=== PATIENT | female | born 1975 | race Caucasian/White ===

== ENCOUNTER 2021-07-19 11:44 | Inpatient (IN) | payer OTHER ==
[~2021-07-19] VITALS: Ht 170.2 cm; Wt 171.5 kg
[2021-07-19] MEDS ORDERED: IV NORMAL SALINE 1,000ML 1,000 ML IV SCH (12:30)
[2021-07-19] MEDS ORDERED: AZITHROMYCIN 500 MG in IV NORMAL SALINE 250ML 250 ML IV ONE (12:30)
[2021-07-19] MEDS ORDERED: DEXAMETHASONE SOD PHOS 10 MG/ML VIAL. IVP ONE (12:30)
[2021-07-19] MEDS ORDERED: IOHEXOL 350 MG/ML 100 ML VIAL. IV ONE (12:45)
[2021-07-19] MEDS ORDERED: IV NORMAL SALINE 50ML 50 ML ONE (13:12)
[2021-07-19] MEDS ORDERED: AZITHROMYCIN 500 MG VIAL. IV ONE (13:12)
[2021-07-19] MEDS ORDERED: cefTRIAXone SODIUM 1 GM VIAL ONE (13:12)
[2021-07-19] MEDS ORDERED: IV NORMAL SALINE 250ML 250 ML ONE (13:12)
[2021-07-19] MEDS ORDERED: ACETAMINOPHEN 325 MG TABLET PO PRN (13:15)
--- NOTE | 2021-07-19 13:21 | PHYS DOC ---
Past History Additional Past Medical Histor: pre diabetes Past Surgical History: , Tonsillectomy, Other Additional Past Surgical Histo: tubal ligation, partial hysterectomy, knee surgery, Smoking: Non-smoker Alcohol Use: None Drug Use: None General Adult EDM: Chief Complaint: SHORTNESS OF BREATH HPI: HPI: 45-year-old female with history of dizziness and shortness of breath upon waking this morning. Patient does report history of positive COVID-19 test on 07/07/2021. Patient reports her symptoms started on 07/05/2021. Patient reports she had started to improved and was outside of isolation time and therefore presented to work yesterday. Patient reports she had been feeling fine until this morning. Patient reports significant dyspnea with any exertion. Denies leg swelling or calf tenderness. Denies chest pain. Patient does report trouble "catching her breath ". Denies fever or chills. Review of Systems: Review of Systems: Constitutional: Denies fever or chills Eyes: Denies redness or eye pain HENT: Denies nasal congestion or sore throat Respiratory: Reports cough. shortness of breath, and dyspnea with exertion Cardiovascular: Denies chest pain or palpitations GI: Denies abdominal pain, nausea, or vomiting : Denies dysuria or hematuria Musculoskeletal: Denies back pain or joint pain Integument: Denies rash or skin lesions Neurologic: Denies headache, focal weakness or sensory changes; reports dizziness Complete systems were reviewed and found to be within normal limits, except as documented in this note. Current Medications: Current Meds: Current Medications Medications (Trade) Dose Ordered Sig/Faustino Start Time Stop Time Status Last Admin Dose Admin Azithromycin (Zithromax) 500 mg STK-MED ONCE 07/19/21 13:12 07/19/21 13:12 DC Azithromycin 500 mg/Sodium Chloride 250 ml @ 250 mls/hr 1X ONCE 07/19/21 12:30 07/19/21 13:29 Ceftriaxone Sodium 1 gm/ Sodium Chloride 50 ml @ 100 mls/hr 1X ONCE 07/19/21 12:30 07/19/21 12:59 DC Ceftriaxone Sodium (Rocephin) 1 gm STK-MED ONCE 07/19/21 13:12 07/19/21 13:12 DC Dexamethasone Sodium Phosphate (Decadron) 10 mg 1X ONCE 07/19/21 12:30 07/19/21 12:48 DC Iohexol (Omnipaque 350 Mg/ml) 100 ml 1X ONCE 07/19/21 12:45 07/19/21 12:48 DC Sodium Chloride 50 ml @ As Directed STK-MED ONCE 07/19/21 13:12 07/19/21 13:12 DC Allergies: Allergies: Allergies Coded Allergies Type Severity Reaction Last Updated Verified codeine Allergy Unknown 07/19/21 Yes Physical Exam: PE: Constitutional: Well developed, morbidly obese, no acute distress, non-toxic appearance HENT: Normocephalic, atraumatic Eyes: PERRL, EOMI, conjunctiva normal, no discharge, no nystagmus Neck: Normal range of motion, no tenderness, supple, no meningeal signs Lungs & Thorax: No respiratory distress, equal chest rise and fall Abdomen: Soft, no tenderness Skin: Warm, dry, no erythema, no rash Extremities: No tenderness, ROM intact, no edema Neurologic: Alert and oriented X 3, normal motor function, normal sensory function, no focal deficits noted Psychologic: Affect normal, judgment normal Current Patient Data: Vital Signs: Vital Signs Date Time Temp Pulse Resp B/P (MAP) Pulse Ox O2 Delivery O2 Flow Rate FiO2 07/19/21 12:27 98.3 123 24 151/75 (100) 86 Room Air EKG: EKG: @1229 Sinus tachycardia at 115bpm, NO ST elevation, QRS 100ms, QT/QTc 352/489ms Radiology/Procedures: Radiology/Procedures: PROCEDURE: CT ANGIOGRAPHY CHEST EXAM: CT angiography of the chest with intravenous contrast. HISTORY: Dyspnea. Covid 19. TECHNIQUE: Computed tomographic images of the chest were obtained following the administration of intravenous contrast according to angiography protocol. Multiplanar reformatting was performed and three dimensional maximum intensity projection images were obtained. *One or more of the following individualized dose reduction techniques were utilized for this examination: 1. Automated exposure control. 2. Adjustment of the mA and/or kV according to patient size. 3. Use of iterative reconstruction technique. COMPARISON: None. FINDINGS: There are extensive bilateral pulmonary emboli involving the main, lobar and segmental pulmonary arteries. No saddle embolus is seen. The heart is normal in size. There is trace pericardial fluid. The aorta is normal in caliber. There is no evidence of right heart strain or pulmonary artery hypertension. There is no pneumothorax or pleural effusion. There is multifocal scattered groundglass infiltrate in a personally right upper lobe distribution. There is right basilar partial consolidation or atelectasis. There is a prominent calcified granuloma within the right lower lobe. There are also calcified media stinal and right hilar granulomas. There are prominent mediastinal and hilar lymph nodes. These are likely reactive in etiology. There is hepatomegaly and hepatic steatosis, partially included on the [id number]. There are splenic granulomas. There is no acute or suspicious osseous lesion. IMPRESSION: 1. Extensive bilateral pulmonary emboli with involvement of the main pulmonary arteries and bilateral lobar and segmental pulmonary arteries. No saddle embolus or right heart strain is seen. 2. Bilateral multifocal groundglass infiltrate in a peripherally upper lobe distribution. Correlate for atypical pneumonia. 3. Right basilar atelectasis or partial consolidation. 4. Hepatic steatosis and hepatomegaly. 5. Healed granulomas disease. 6. Suspected reactive mediastinal and hilar lymph nodes. Findings discussed with Dr. Tesfaye in the ED at 1400 hours on 07/19/2021. FOR INTERNAL CODING PURPOSES RESULT CODE: (C) Electronically signed by: Althea Anguiano MD (07/19/2021 2:18 PM) [facility] Heart Score: C/O Chest Pain: N/A Course & Med Decision Making: Course & Med Decision Making Pertinent Labs and Imaging studies reviewed. (See chart for details) Patient with recent positive COVID-19 test on 07/07/2021 presents with increased dizziness and dyspnea with exertion. Patient had previously been feeling back to normal. Patient noted to be hypoxic. Supplemental O2 placed. Covid precautions in place. EKG with sinus tachycardia. Labs obtained and posted to chart. CTA chest with findings of bilateral PEs and findings of residual Covid pneumonia.. No signs of heart strain appreciated. Troponin elevated likely secondary to PEs. Repeat troponin improved. Lactic acid also elevated which improved during ED stay. Aspirin provided. Empiric Lovenox provided. Empiric antibiotic also initiated along with IV fluid hydration. Patient does meet SIRS criteria with tachycardia and tachypnea. Source of infection in lungs with Covid pneumonia. Lactic acid elevated. Patient does meet severe sepsis criteria. IV fluid bolusing based on ideal body weight. Patient requiring admission for further evaluation and treatment. Discussed with Dr. Del Valle (hospitalist) who is in agreement with admission at [facility]. Discussed findings and plan with patient, who acknowledges understanding and agreement. COVID-19 CRITERIA: The patient was evaluated during the global COVID-19 pandemic, and that diagnosis was suspected/considered upon their initial presentation. Their evaluation, treatment and testing was consistent with current guidelines for patients who present with complaints or symptoms that may be related to COVID-19. Dragon Disclaimer: Dragon Disclaimer: This electronic medical record was generated, in whole or in part, using a voice recognition dictation system. Departure Departure: Impression: Primary Impression: Bilateral pulmonary embolism Additional Impressions: Respiratory failure Qualified Codes: J96.01 - Acute respiratory failure with hypoxia Hypoxia COVID-19 Elevated troponin Lactic acidosis Severe sepsis Disposition: ADMITTED INPATIENT Admitting Physician: Tristin Del Valle Condition: GUARDED Referrals: TRISTIN DEL VALLE MD (PCP) COVID-19 Assessment COVID-19 Patient Risks: Age 65 or older: No Sign of co-morbidity: Yes Exp to person + for COVID: Yes Exp to PUI: No Travel from affected area: No Lower respiratory symptoms: Yes Fever: No Other: Yes PPE Use: Full PPE with N95 mask or PAPR: Yes Critical Care Time Critical care time was 30 minutes which includes time at bedside, spent in discussion of patient's care with specialists and/or family members, with interpretation of laboratory and/or radiological studies and is exclusive of procedures. Sepsis Assessment Date and Time of Assessment Date: Jul 19, 2021 Time: 15:30 Fluid Challenge: Is the fluid challenge complet: No IBW Target Volume Used: Yes BMI > 30: Yes Vital Signs Vital Signs Vital Signs Date Time Temp Pulse Resp B/P (MAP) Pulse Ox O2 Delivery O2 Flow Rate FiO2 07/19/21 16:47 107 22 154/90 (111) 93 Nasal Cannula 2.0 07/19/21 12:27 98.3 Temperature Source: Oral Respirations Respiratory Effort: Shortness of air Respiratory Pattern: Tachypnea Cardiovascular Pulse Rhythm: Irregular (tachycardia) Heart: S1 and S2 normal Lung Sounds Breath Sounds: Diminished Capillary Refill Capillary Refill: Rt Hand < 3 seconds Peripheral Pulse Pulse Location: Radial Pulse Strength: Normal (2+) Pulse Assessment Method: Palpation Integumentary Skin: Warm, Dry Skin Moisture: Dry Skin Turgor: Normal Skin Color: warm, dry Fingernail Color: WNL JUANA TESFAYE DO Jul 19, 2021 13:21
[2021-07-19 13:42] LABS: BASO % 0 % (0-3); EOS % 1 % (0-3); HEMATOCRIT 42.5 % (36.0-47.0); HEMOGLOBIN 13.9 g/dL (12.0-15.5); LYMPH # 1.1 x10^3/uL (1.0-4.8); LYMPH % 15 % (24-48); MEAN CORPUSCULAR HEMOGLOBIN 28 pg (25-35); MEAN CORPUSCULAR HGB CONC 33 g/dL (31-37); MEAN CORPUSCULAR VOLUME 86 fL (79-100); MONO # 0.4 x10^3/uL (0.0-1.1); MONO % 6 % (0-9); NEUT % 79 % (31-73); PLATELET COUNT 246 x10^3/uL (140-400); RED BLOOD COUNT 4.93 x10^6/uL (3.50-5.40); RED CELL DISTRIBUTION WIDTH 14.9 % (11.5-14.5); WHITE BLOOD COUNT 7.6 x10^3/uL (4.0-11.0)
[2021-07-19 13:44] LABS: CALCIUM 9.4 mg/dL (8.5-10.1); CREATININE 1.1 mg/dL (0.6-1.0); GFR 53.7; POTASSIUM 4.1 mmol/L (3.5-5.1)
[2021-07-19] MEDS ORDERED: ASPIRIN ENTERIC COATED 325 MG TABLET.DR. PO ONE (14:00)
[2021-07-19 14:01] LABS: ALBUMIN 3.6 g/dL (3.4-5.0); ALBUMIN/GLOBULIN RATIO 0.9 (1.0-1.7); MAGNESIUM 1.8 mg/dL (1.8-2.4); TOTAL BILIRUBIN 0.5 mg/dL (0.2-1.0); TOTAL PROTEIN 7.7 g/dL (6.4-8.2)
--- NOTE | 2021-07-19 14:20 | RAD ---
EXAM: CT angiography of the chest with intravenous contrast. HISTORY: Dyspnea. Covid 19. TECHNIQUE: Computed tomographic images of the chest were obtained following the administration of int ravenous contrast according to angiography protocol. Multiplanar reformatting was performed and three dimensional maximum intensity projection images were obtained. *One or more of the following individualized dose reduction techniques were utilized for this examina tion: 1. Automated exposure control. 2. Adjustment of the mA and/or kV according to patient size. 3. Use of iterative reconstruction technique. COMPARISON: None. FINDINGS: There are extensive bilateral pulmonary emboli involving the main, lobar and segmental pulm onary arteries. No saddle embolus is seen. The heart is normal in size. There is trace pericardial fl uid. The aorta is normal in caliber. There is no evidence of right heart strain or pulmonary artery h ypertension. There is no pneumothorax or pleural effusion. There is multifocal scattered groundglass infiltrate in a personally right upper lobe distribution. There is right basilar partial consolidation or atelecta sis. There is a prominent calcified granuloma within the right lower lobe. There are also calcified m ediastinal and right hilar granulomas. There are prominent mediastinal and hilar lymph nodes. These are likely reactive in etiology. There i s hepatomegaly and hepatic steatosis, partially included on the [id number]. There are splenic gran ulomas. There is no acute or suspicious osseous lesion. IMPRESSION: 1. Extensive bilateral pulmonary emboli with involvement of the main pulmonary arteries and bilateral lobar and segmental pulmonary arteries. No saddle embolus or right heart strain is seen. 2. Bilateral multifocal groundglass infiltrate in a peripherally upper lobe distribution. Correlate f or atypical pneumonia. 3. Right basilar atelectasis or partial consolidation. 4. Hepatic steatosis and hepatomegaly. 5. Healed granulomas disease. 6. Suspected reactive mediastinal and hilar lymph nodes. Findings discussed with Dr. Doe in the ED at 1400 hours on 07/19/2021. FOR INTERNAL CODING PURPOSES RESULT CODE: (C) Electronically signed by: Althea Anguiano MD (07/19/2021 2:18 PM) [facility]
[2021-07-19] MEDS ORDERED: ENOXAPARIN ** NOTE DOSE ** SYRINGE SQ ONE ×2 (14:30)
[2021-07-19] MEDS ORDERED: IV NORMAL SALINE 1,000ML 1,000 ML IV ONE (18:00)
[2021-07-19 18:35] VITALS: BP 125/93
[2021-07-19] MEDS ORDERED: ZOLPIDEM 5 MG TABLET. PO PRN (19:00)
[2021-07-19] MEDS ORDERED: ACETAMINOPHEN 500 MG TABLET PO PRN (19:00)
--- NOTE | 2021-07-19 19:20 | NUR ---
Pt admitted to [facility] room 103 from ER via [facility], accompanied by EMS and nursing staff. Pt self transferred from rwells to bed independently, steady gait noted. Admission assessment completed. Pt here for SOA r/t Covid (Tested + 07/07). Pt place on telemetry, S.Tach noted on monitor. Pt on 2L NC. Health history or home medications reviewed with pt. Pt lives at home with family, Luis is also + Co[employer]. Lovenox for VTE. Pt refused Flu vaccine and also Covid vaccine. Pt was given written information regarding hospital policies, unit procedures and contact persons. POC reviewed with pt, understanding verbalized. Valuables were checked and left at bedside per pt request. Pt placed in Airborne and Contact precautions. Pt given Dinner tray. Pt given IS and education, pt performed correctly and use encouraged.
--- NOTE | 2021-07-19 19:21 | HP ---
ADMIT DATE: 07/19/2021 HISTORY OF PRESENT ILLNESS: The patient is a 45-year-old female, came in extremely dizzy, short of breath upon awakening this morning. The patient has a history of positive COVID back on 07/07. The patient reports her symptoms started even 2 days prior to that. The patient noted that she started to improve and of course was isolated. However, she recovered, but this is something new for her. The patient was admitted for further evaluation of her bilateral pulmonary emboli and make further evaluation on her as indicated. The patient did have significant dyspnea with exertion, trouble catching her breath. We will go ahead and continue to monitor carefully. She was then started on Lovenox and make further evaluation on her as indicated. She was also placed on antibiotic therapy as well. Possible pneumonia as well. PAST MEDICAL HISTORY: No significant medical history except for her COVID-19 over 2 weeks ago. FAMILY HISTORY: Noncontributory. ALLERGIES: THE PATIENT HAS AN ALLERGY TO CODEINE. OUTPATIENT MEDICATIONS: No listed outpatient medications are noted. SOCIAL HISTORY: The patient denies any hard drug use. Occasional alcohol, no smoking. The patient is a FULL CODE. REVIEW OF SYSTEMS: Outside of that noted in the HPI, she denies any headaches, visual change, blurred vision, double vision, nausea, vomiting, melena, hematochezia, hematemesis, and neurologically otherwise intact. PHYSICAL EXAMINATION: GENERAL: This is a pleasant white female, in moderate amount of distress. VITAL SIGNS: Blood pressure 133/87, respiratory rate 21, pulse 106, up to 123, 86% on room air. HEENT: The patient otherwise head was atraumatic, normocephalic. Eyes: PERRLA without jaundice. The mouth and throat were normal. NECK: Supple, without JVD or thyromegaly. LUNGS: Diminished throughout, poor movement of air. CARDIOVASCULAR: Regular sinus rhythm, S1, S2, without murmur, rub, thrill, or extra heart sounds. ABDOMEN: Soft, nontender. No rebound or guarding. Positive bowel sounds. No hepatosplenomegaly noted. EXTREMITIES: No clubbing, cyanosis. Positive equivocal Homans sign. IMPRESSION: The patient will be monitored carefully, make further evaluation on her as indicated per those results as indicated. CT scan shows bilateral pulmonary emboli. Also elevated liver enzymes were also noted, AST of 100, ALT of 126. Also slightly elevated troponins, probably secondary to the pulmonary emboli. BNP of 2600. Lactic acid 2.5. The patient's lab was basically unremarkable. Continue to monitor patient accordingly, make further evaluation on her as indicated. The patient will be placed on Lovenox, bilateral pulmonary emboli. PLAN: As above. MARILOU DR: Serafin TID: [id number]
[2021-07-19] MEDS ORDERED: CELE100C PO (19:22)
[2021-07-19] MEDS ORDERED: CETI10TA74 PO (19:22)
[2021-07-19] MEDS ORDERED: MV-M1TAB7 PO (19:22)
[2021-07-19] MEDS ORDERED: CHOL400T36 PO (19:22)
[2021-07-19] MEDS ORDERED: ASCO-151 PO (19:22)
[2021-07-19] MEDS ORDERED: ZINC50TA39 PO (19:22)
--- NOTE | 2021-07-19 19:22 | EKG ---
[address] [address] Test Date: 2021-07-19 Test Time: 12:29:41 Pat Name: ANTONIA NAJERA Department: Room: Gender: F Section [employer] Activities Clerk: MAURIZIO : 1975 Requested By: JUANA TESFAYE Order Number: [id number] Reading MD: Measurements Intervals [place] Rate: 115 P: -68 [place]: 142 QRS: 56 QRSD: 100 T: 23 QT: 352 QTc: 489 Interpretive Statements SINUS TACHYCARDIA OTHERWISE NORMAL ECG RI6.02 No previous ECG available for comparison
[2021-07-19] MEDS: CELECOXIB 100 MG CAPSULE PO SCH (20:55)
[2021-07-19] MEDS: ENOXAPARIN ** NOTE DOSE ** SYRINGE SQ SCH ×2 (20:56)
--- NOTE | 2021-07-19 21:40 | EKG ---
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
[2021-07-19 23:58] VITALS: BP 103/71
--- NOTE | 2021-07-20 00:55 | RAD ---
EXAM: Bilateral lower extremity venous Doppler. HISTORY: Bilateral lower extremity pain/swelling. Pulmonary embolism. COMPARISON: None. FINDINGS: Grayscale and Doppler analysis of the both lower extremity deep venous systems was performe d with graded compression and augmentation. The common femoral, greater saphenous, superficial femora l, popliteal and calf veins were assessed. There is no evidence of deep venous thrombosis. IMPRESSION: 1. No evidence of deep venous thrombosis. Electronically signed by: Claudio Costa MD (07/20/2021 12:52 AM) [facility]
--- NOTE | 2021-07-20 00:58 | RAD ---
EXAM: RIGHT UPPER QUADRANT ULTRASOUND. HISTORY: Elevated liver enzymes. COMPARISON: None. FINDINGS: Sonographic evaluation of the right upper quadrant was performed. Hyperechogenicity of the hepatic parenchyma is consistent with diffuse hepatic steatosis. The liver i s at least mildly enlarged on real-time scanning. There are no focal lesions. Echogenic nonshadowing material within the gallbladder suggests sludge. There is no pericholecystic f luid. The gallbladder is decompressed but there is mild wall thickening at 4 mm. There is no sonogra phic Alarcon sign. The common duct and pancreas pancreas are obscured by bowel gas and overlying struc tures. The right kidney measures 12.0 cm. Cortical thickness and echogenicity are preserved. There is no hyd ronephrosis. The visualized portions of the abdominal aorta and inferior vena cava are grossly patent and normal i n caliber. IMPRESSION: 1. Echogenic material within the gallbladder suggests a small amount of sludge. Mild gallbladder wall thickening may reflect only luminal decompression. 2. Diffuse hepatic steatosis and hepatomegaly. 3. Limited visualization limited by habitus. Electronically signed by: Claudio Costa MD (07/20/2021 12:55 AM) [facility]
[2021-07-20 05:45] VITALS: BP 110/73
[2021-07-20] MEDS: ENOXAPARIN ** NOTE DOSE ** SYRINGE SQ SCH ×4 (08:14→20:03)
[2021-07-20] MEDS: ZINC SULFATE 220 MG CAPSULE. PO PRN (08:15)
[2021-07-20] MEDS: CELECOXIB 100 MG CAPSULE PO SCH ×2 (08:15→20:03)
[2021-07-20] MEDS: CETIRIZINE HCL 10 MG TABLET PO SCH (08:15)
[2021-07-20 10:51] LABS: BILIRUBIN,URINE NEG (NEG); CLARITY,URINE CLEAR; COLOR,URINE YELLOW; GLUCOSE,URINE NEG (NEG); NITRITE,URINE NEG (NEG); UROBILINOGEN,URINE 0.2 mg/dL (0.2 mg/dL)
[2021-07-20 10:59] LABS: BACTERIA,URINE 0 /HPF (0-FEW); SQUAMOUS EPITHELIAL CELL,UR MOD /LPF; WBC,URINE OCC /HPF (0-4)
[2021-07-20 11:00] LABS: AMMONIUM BIURATE PRESENT /HPF
[2021-07-20 11:06] VITALS: BP 119/84
[2021-07-20] MEDS: AZITHROMYCIN 500 MG in IV NORMAL SALINE 250ML 250 ML IV SCH (14:53)
[2021-07-20 15:44] VITALS: BP 133/83
[2021-07-20] MEDS: LACTOBACILLUS RHAMNOSUS GG 1 CAPSULE. PO SCH (20:03)
[2021-07-20 20:25] VITALS: BP 149/98
--- NOTE | 2021-07-20 21:53 | PN ---
DATE: 07/20/2021 SUBJECTIVE: This is a 45-year-old female in with pulmonary emboli, some respiratory distress secondary to PE. She had a COVID more than 2 weeks ago, she was basically afebrile until day of admission when she began to feel short of breath and came in and a CT scan demonstrated the significant pulmonary emboli, extensive bilateral pulmonary emboli with involvement of the main pulmonary arteries, but apparently there was no saddle embolus or right heart strain; however, there was also some bilateral multifocal ground glass infiltrate in her peripheral upper lobe distribution, possible atypical pneumonia, hepatic steatosis as noted and we had the elevated liver enzymes. The patient courses on double antibiotics for atypical pneumonia as well as she is on Lovenox subcutaneous. She is on 100 mg q. 12 for the bilateral pulmonary emboli. Venous Dopplers were negative. She did have elevated liver enzymes and her abdominal ultrasound did demonstrate some small amount of sludge in the gallbladder, mild gallbladder wall thickening and diffuse hepatic steatosis and hepatomegaly. The patient was advised in all of these counts. She is feeling somewhat better. We will continue on IV antibiotic therapy. Lovenox for now and see how she progresses to these multiple problems. IMPRESSION: Bilateral pulmonary emboli, atypical pneumonia, acute respiratory failure, morbid obesity, elevated liver enzymes. We will go ahead and continue that as noted above with the protocol as indicated. SAPPHIRE DR: Serafin TID: [id number]
[2021-07-20 23:26] VITALS: BP 109/75
[2021-07-21 06:03] VITALS: BP 104/68
[2021-07-21] MEDS: ZINC SULFATE 220 MG CAPSULE. PO PRN (07:52)
[2021-07-21] MEDS: CELECOXIB 100 MG CAPSULE PO SCH ×2 (07:52→19:45)
[2021-07-21] MEDS: LACTOBACILLUS RHAMNOSUS GG 1 CAPSULE. PO SCH ×2 (07:52→19:44)
[2021-07-21] MEDS: ENOXAPARIN ** NOTE DOSE ** SYRINGE SQ SCH ×4 (07:54→19:44)
[2021-07-21] MEDS: CETIRIZINE HCL 10 MG TABLET PO SCH (08:03)
[2021-07-21 10:57] VITALS: BP 121/79
[2021-07-21 13:19] LABS: DIRECT BILIRUBIN 0.1 mg/dL (0.0-0.2); TOTAL BILIRUBIN 0.3 mg/dL (0.2-1.0); TOTAL PROTEIN 6.9 g/dL (6.4-8.2)
[2021-07-21] MEDS: AZITHROMYCIN 500 MG in IV NORMAL SALINE 250ML 250 ML IV SCH (14:24)
[2021-07-21 15:05] VITALS: BP 105/66
[2021-07-21 19:30] VITALS: BP 137/79
--- NOTE | 2021-07-21 23:00 | PN ---
SUBJECTIVE: A 45-year-old female in with pulmonary emboli. She had COVID earlier this month and has been well over 20 days, but more importantly, the patient had a sudden onset of shortness of breath for which she was diagnosed with pulmonary emboli and also pneumonia. The patient is afebrile, blood pressure 105/60, respiratory rate 20, pulse 80, afebrile, 95% on room air, feeling somewhat stronger, but very dyspneic on minimal exertion. She continues with IV antibiotic therapy and continues to make further testing is available and is positive, but again I do believe she is infective since her initial infection goes back to early June, but in any case, the patient's lungs are diminished, but clear. OBJECTIVE: CARDIOVASCULAR: Stable. ABDOMEN: Soft, nontender. NEUROLOGIC: The patient is alert and oriented. EXTREMITIES: No clubbing, cyanosis or edema. IMPRESSION: Pulmonary emboli; history of COVID-19 pneumonia, community acquired. PLAN: Continue on present drug regimen. LUISA/MAHIN DR: LUISA/elizabeth TID: [id number]
[2021-07-21 23:29] VITALS: BP 120/79
[2021-07-22 06:01] VITALS: BP 119/79
[2021-07-22] MEDS: ENOXAPARIN ** NOTE DOSE ** SYRINGE SQ SCH ×2 (08:22)
[2021-07-22] MEDS: CETIRIZINE HCL 10 MG TABLET PO SCH (08:22)
[2021-07-22] MEDS: LACTOBACILLUS RHAMNOSUS GG 1 CAPSULE. PO SCH ×2 (08:22→20:23)
[2021-07-22] MEDS: CELECOXIB 100 MG CAPSULE PO SCH (08:22)
[2021-07-22 11:40] VITALS: BP 123/79
[2021-07-22 12:24] LABS: BASO % 1 % (0-3); EOS # 0.1 x10^3/uL (0.0-0.7); EOS % 2 % (0-3); HEMATOCRIT 35.9 % (36.0-47.0); HEMOGLOBIN 11.7 g/dL (12.0-15.5); LYMPH # 1.9 x10^3/uL (1.0-4.8); LYMPH % 27 % (24-48); MEAN CORPUSCULAR HEMOGLOBIN 28 pg (25-35); MEAN CORPUSCULAR HGB CONC 33 g/dL (31-37); MEAN CORPUSCULAR VOLUME 87 fL (79-100); MONO # 0.5 x10^3/uL (0.0-1.1); MONO % 8 % (0-9); NEUT # 4.5 x10^3uL (1.8-7.7); NEUT % 63 % (31-73); PLATELET COUNT 221 x10^3/uL (140-400); RED BLOOD COUNT 4.13 x10^6/uL (3.50-5.40); RED CELL DISTRIBUTION WIDTH 14.7 % (11.5-14.5); WHITE BLOOD COUNT 7.2 x10^3/uL (4.0-11.0)
[2021-07-22] MEDS: AZITHROMYCIN 500 MG in IV NORMAL SALINE 250ML 250 ML IV SCH (14:07)
--- NOTE | 2021-07-22 14:30 | NUR ---
NURSING NOTE PT WAS IN BED THIS AM UPON ASSESSMENT AND MEDICATION ADMINISTRATION. PT IS A&O X4. PT TAKES MEDS WHOLE. PT CALM AND COOPERATIVE WITH ALL CARES THUS FAR. PT AND OT ORDERED ON PT TODAY PER DR DEL VALLE TO GET PT UP AND MOVING. PT WAS UP TO CHAIR FOR LUNCH TODAY. PT REMAINS ON ROOM AIR. PT HAS BRUISING ON ABDOMEN FROM LOVENOX INJECTIONS. PT STATES SHE FEELS WELL TODAY, TOOK A SHOWER TODAY. PT C/O ITCHING IN HER LEFT EAR, UPON EXAMINATION, RIGHT EAR LOOKS CLEAR, LEFT EAR LOOKS REDDENED. WILL NOTIFY DR DEL VALLE UPON ROUNDS IN AM TO EVALUATE. PT WAS HOPING TO DISCHARGE HOME TODAY, BUT PER DR DEL VALLE, NOT TODAY. KELVIN HUANG.
[2021-07-22 15:30] VITALS: BP 117/77
[2021-07-22 18:47] VITALS: BP 127/77
[2021-07-22] MEDS: APIXABAN 5 MG TABLET. PO SCH (20:23)
--- NOTE | 2021-07-23 03:47 | PN ---
SUBJECTIVE: A 45-year-old female in with pulmonary emboli. The patient is still somewhat short of breath, having difficulty with movement. Otherwise, feeling fairly good. She is also positive for COVID, but had that earlier this month, so I think it is just residual and not an active infection since the patient's temperature is only 98. OBJECTIVE: VITAL SIGNS: Blood pressure 117/70, respiratory rate 20, pulse 78, afebrile, 97% on room air. GENERAL: The patient quite flushed. LUNGS: Slightly diminished primarily in the bases. CARDIOVASCULAR: Regular sinus rhythm, S1, S2, without murmur, rub, thrill, or extra heart sounds. ABDOMEN: Soft, diffuse tenderness. EXTREMITIES: No clubbing, cyanosis or edema. NEUROLOGIC: Intact. IMPRESSION AND PLAN: Bilateral pulmonary emboli, pneumonia of unspecified etiology, probably community acquired, post COVID-19 infection, acute respiratory failure, morbid obesity, elevated liver enzymes, although the latter coming down. Convert her over from Lovenox to oral medications and hopefully ready for discharge here soon. ANDREA DR: Serafin TID: [id number]
[2021-07-23 05:49] VITALS: BP 121/78
[2021-07-23] MEDS: CETIRIZINE HCL 10 MG TABLET PO SCH (08:53)
[2021-07-23] MEDS: LACTOBACILLUS RHAMNOSUS GG 1 CAPSULE. PO SCH (08:54)
[2021-07-23] MEDS: APIXABAN 5 MG TABLET. PO SCH (08:54)
[2021-07-23] MEDS ORDERED: LACT1CAP19 PO (09:58)
[2021-07-23] MEDS ORDERED: CEFD300C PO (09:58)
[2021-07-23] MEDS ORDERED: APIX5TAB3 PO ×2 (09:58→10:39)
[2021-07-23] MEDS ORDERED: AZIT500T PO (09:58)
[2021-07-23] MEDS: AZITHROMYCIN 500 MG in IV NORMAL SALINE 250ML 250 ML IV SCH (13:57)
--- NOTE | 2021-07-23 15:44 | NUR ---
NURSING NOTE PT DISCHARGED HOME VIA AMBULATION, DISCHARGE INSTRUCTIONS GIVEN, PT VERBALIZED UNDERSTANDING
== END 2021-07-23 15:48 | disposition home or self-care (01) | DRG 871 ==
LOC: ER 11:44 → 1 SOUTH 15:36
PROVIDERS: ADMIT Family Medicine; ATTEND Family Medicine
DX: A41.9 Sepsis, unspecified organism (principal); J18.9 Pneumonia, unspecified organism; J96.01 Acute respiratory failure with hypoxia; I26.99 Other pulmonary embolism without acute cor pulmonale; J98.11 Atelectasis; Z68.43 Body mass index [BMI] 50.0-59.9, adult; R65.20 Severe sepsis without septic shock; E66.01 Morbid (severe) obesity due to excess calories; K76.0 Fatty (change of) liver, not elsewhere classified; Z79.01 Long term (current) use of anticoagulants; Z86.16 Personal history of COVID-19; Z86.711 Personal history of pulmonary embolism; Z87.01 Personal history of pneumonia (recurrent); Z90.711 Acquired absence of uterus with remaining cervical stump; Z98.891 History of uterine scar from previous surgery; Z88.8 Allergy status to other drugs, medicaments and biological substances; Z90.49 Acquired absence of other specified parts of digestive tract; Z98.51 Tubal ligation status; Z79.899 Other long term (current) drug therapy
CPT/HCPCS: 36415; 71275; 76705; 80053; 80076; 81001; 82553; 83605; 83735; 83880; 84484; 85025; 86705; 86709; 86803; 87040; 87340; 87426; 93005; 93970; 96365; 96367; 96375; J0456; J0696; J1100; J1650; J7050; Q9967; U0003; 99291-25; J7030